=== PATIENT | female | born 2000 | race Two or more races ===

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

== ENCOUNTER → 2020-02-17 | Outpatient (CLI) | payer MEDICAID | LOC: OD 09:24 | PROVIDERS: ATTEND Nurse Practitioner Family | DX: Z01.84 Encounter for antibody response examination (principal) | CPT/HCPCS: 36415; 86706 ==